=== PATIENT | male | born 1955 | race Caucasian/White ===

== ENCOUNTER 2025-06-23 13:43 | Emergency (ER) | payer MEDICARE, SELFPAY ==
[2025-06-23 13:50] VITALS: BP 142/86; PULSE 71; TEMP 36.9; O2SAT 98; BMI 39.6
--- NOTE | 2025-06-23 13:57 | XR_ITS ---
The [address] [address] Patient Name: PARAMJIT ROMAN MRN: [id number] date: 1955 Sex: M Assigned Patient Location: ED.MAIN Current Patient Location: ED.MAIN Accession/Order Number: [id number] Exam Date: 06/23/2025 14:55 Report Date: 06/23/2025 14:55 At the request of: ALE LACY MD Procedure: XR chest 1V Plain film chest Single view HISTORY: Cough for 3 days COMPARISON: None FINDINGS: SUPPORT DEVICES: None POSTSURGICAL CHANGES: None HEART: Within normal limits PULMONARY KELLY: Within normal limits MEDIASTINUM: Unremarkable LUNGS AND PLEURA: No acute lung process, pleural effusion or pneumothorax identified. BONY STRUCTURES: Intact ADDITIONAL FINDINGS None XR/XR chest 1V IMPRESSION: No acute process. Impression dictated by: Forest Mcintosh M.D. 06/23/2025 2:55 PM Dictation Location: [facility] Electronically authenticated by: [id number] Y Date: 06/23/2025 14:55
--- OUTSIDE RECORDS SUMMARY | 2025-06-23 14:11 | XMS_ITS | Clinical Summary ---
Author Organization [employer] [facility] Address [id number] [address] [place] [address] Care Team Providers Care Equipment Operat0R Name Role Phone Martin Khan MD Primary Care Provider + [phone] Allergies No known active allergies Medications sertraline (ZOLOFT) 50 mg tablet Take 50 mg by mouth daily. Active ARIPiprazole (ABILIFY) 5 mg tablet Take 10 mg by mouth daily. Active cholecalciferol , vitamin D3, (VITAMIN D3) 1,000 unit capsule Take 1,000 Units by mouth daily. Active vitamin E 400 units capsule Take 800 Units by mouth daily. Active fluticasone propionate (FLONASE) 50 mcg/actuation nasal spray Administer 1 spray into each nostril daily. Active L. rhamnosus GG/inulin (CULTURELLE PROBIOTICS ORAL) Take by mouth. Activ e EPINEPHrine (EPIPEN) 0.3 mg/0.3 mL auto-injector Inject 0.3 mL (0.3 mg total) into the appropriate muscle as needed (ANAPHYLAXIS) for up to 1 dose. PLEASE DISPENSE 1 BOX (2 PENS) 1 each 9 Active Additional Information Patient not taking.Reported on 12/23/2019 ibuprofen (MOTRIN ORAL) Take 800 mg by mouth daily as needed. Active DULoxetine (CYMBALTA) 20 mg capsule Take 20 mg by mouth daily. 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 Left-sided tinnitus 08/31/2019 Cigarette smoker 08/31/2019 Family History Medical History Relation Name Comments Cancer Father Lymphoma Father Aneurysm Mother Relation Name Status Comments Father Mother Social History Tobacco Use Types Packs/Day Years Used Date Smoking Tobacco: Some Days Smokeless Tobacco: Never Tobacco Cessation:Ready to Q uit: No; Counseling Given: Yes Alcohol Use Standard Drinks/Week Comments Yes 0 (1 standard drink = 0.6 oz pur e alcohol) Childcare Answer Date Recorded Childcare Unknown 05/11/2019 Employment Answer Date Recorded Employment Unknown 05/11/2019 Purpose - Life Answer Date Recorded Purpose and direction in life Unknown Sex and Gender Information Value Date Recorded Sex Assigned at Not on file Legal Sex Male 12:04 PM EDT Gender Identity Not on file Sexual Orientation Not on file Last Filed Vital Signs Vital Sign Reading Time Taken Comments Blood Pressure 141/79 12/23/2019 2:54 PM EST Pulse 71 12/23/2019 2:54 PM EST Temperature 36.8 C (98.2 F) 12/23/2019 2:54 PM EST Respiratory Rate 18 12/23/2019 2:54 PM EST Oxygen Saturation 97% 12/23/2019 2:54 PM EST Inhaled Oxygen Concentration - - Weight 141.1 kg (311 lb) 04/14/2022 7:06 PM EDT Height 188 cm (6' 2 ) 04/14/2022 7:06 PM EDT Body Mass Index 39.93 04/14/2022 7:06 PM EDT Plan of Treatment Health Maintenance Due Date Last Done Comments Depression Screening 1969 Tobacco Screening 1969 Adult BMI Screening 1975 Zoster (Shingles) Vaccine (1 of 2) 1976 COVID-19 Vaccine (3 - Pfizer risk series) 07/03/2021 06/05/2021, 05/15/2021 Fall Risk Screening 2022 Influenza Vaccine 07/31/2025 11/04/2023, , 11/14/2021, Additional history exists DTaP,Tdap and Td Vaccines (2 - Td or Tdap) 12/23/2028 12/23/2018 Medical Devices Not on file Insurance TNA [employer] MEDICARE Care Teams Equipment Operat0R Relationship Specialty Start Date End Date Martin Khan MD [address] [address] PCP - General Internal Medicine 02/12/23
[2025-06-23 14:24] VITALS: TEMP 37.5
--- NOTE | 2025-06-23 14:25 | ED.GENADUL1 ---
HPI HPI - General Adult General Chief complaint: Upper Respiratory Infection Stated complaint: BODY ACHES Time Seen by Provider: 06/23/25 14:23 Source: patient Mode of arrival: walk-in Limitations: no limitations History of Present Illness HPI narrative: Patient presents emergency department with 3-day history of cough, congestion, generalized malaise, fatigue, headache, body aches, dry heaves, poor food intake. Patient states that symptoms have been ongoing for the past 3 days. Patient did go to a reunion prior to symptom onset. Patient denies any associate abdominal pain or diarrhea. Patient has been taking TheraFlu [id number] without improvement in symptoms with last dose taken yesterday. Onset (ago): day(s) (3) Severity: moderate Associated symptoms: Reports cough, diaphoresis, fever/chills, headaches, loss of appetite, malaise and weakness; Denies syncope Related Data Previous Rx's ?Medication ?Instructions ?Recorded albuterol sulfate 90 mcg/actuation 1 inh inhalation Q6H PRN shortness 06/23/25 breath activated powder inhaler of breath #1 ea benzonatate 100 mg capsule 100 mg PO TID PRN cough #20 caps 06/23/25 doxycycline hyclate 100 mg capsule 100 mg PO BID 10 days #20 caps 06/23/25 prednisone 50 mg tablet 50 mg PO DAILY #5 tabs 06/23/25 Allergies Allergy/AdvReac Type Severity Reaction Status Date / Time No Known Drug Allergies Allergy Verified 06/23/25 13:52 Review of Systems ROS Status of ROS 10 or more systems reviewed and unremarkable except as noted in history and below Constitutional Reports: fever and chills Cardiovascular Reports: lightheadedness and shortness of breath with exertion Respiratory Reports: cough and chest congestion Gastrointestinal Denies: abdominal pain, vomiting or diarrhea Integumentary/Breast Denies: rash Neurological Reports: headache PFSH PFSH Social History Little interest or pleasure in doing things: not at all Feeling down, depressed, or hopeless: not at all Exam Constitutional Vital Signs, click to edit/add: Last Vital Signs Temp 99.5 F 06/23/25 14:24 Pulse 71 06/23/25 13:50 Resp 22 H 06/23/25 13:50 BP 142/86 H 06/23/25 13:50 Pulse Ox 98 06/23/25 13:50 O2 Del Method Room Air 06/23/25 13:50 Common normals: no apparent distress General appearance: cooperative Orientation/consciousness: Yes awake, Yes oriented to person, Yes oriented to place and Yes oriented to time HENMT Common normals: normocephalic Respiratory Common normals: normal respiratory effort and no retractions Auscultation: rhonchi lower bilaterally Cardio Common normals: regular rate and regular rhythm GI Common normals: Normal to inspection, nondistended, normoactive bowel sounds present, soft to palpation and non-tender Extremity Common normals: normal to inspection and full ROM General: normal exam except as noted Course Course Hospital Course: Patient had improved symptoms after IV steroids and fluids Vital Signs Vital signs: Vital Signs Temperature 98.5 F 06/23/25 13:50 Pulse Rate 71 06/23/25 13:50 Respiratory Rate 22 H 06/23/25 13:50 Blood Pressure 142/86 H 06/23/25 13:50 Pulse Oximetry 98 06/23/25 13:50 Oxygen Delivery Method Room Air 06/23/25 13:50 Temperature 99.5 F 06/23/25 14:24 Pulse Rate 71 06/23/25 13:50 Respiratory Rate 22 H 06/23/25 13:50 Blood Pressure 142/86 H 06/23/25 13:50 Pulse Oximetry 98 06/23/25 13:50 Oxygen Delivery Method Room Air 06/23/25 13:50 Medical Decision Making [facility] Narrative Medical decision making narrative: Patient presented the emergency department with 3-day history of generalized malaise and fatigue, cough, congestion, subjective fever and chills and poor p.o. intake. Clinically the patient appeared mildly dehydrated but had no chest pain, palpitations or shortness of breath at rest to suggest cardiac etiology of symptoms. Chest x-ray showed no obvious infiltrates. Viral testing including COVID and influenza are negative. White count is normal and electrolytes otherwise unremarkable. Discussed likely bronchitis with the patient. Given patient's improvement in symptoms he will be discharged home with supportive therapy, covered with antibiotics for bacterial etiology of URI and PCP follow-up Differential Diagnosis Differential Diagnosis: Pneumonia, bronchitis, dehydration, COVID, influenza Medical Records Medical records reviewed: Yes I reviewed the patient's medical records Lab Data Lab results reviewed: Yes I reviewed the patient's lab results Labs: Lab Results 06/23/25 06/23/25 Range/Units 13:55 14:35 WBC 4.1 (4.0-11.0) 10^3/uL RBC 4.54 L (4.70-6.10) 10^6/uL Hgb 13.7 L (14.0-18.0) g/dL Hct 40.5 L (42.0-54.0) % MCV 89.2 (80.0-94.0) fL MCH 30.2 (25.9-34.0) pg MCHC 33.8 (29.9-35.2) g/dL RDW 13.6 (11.0-15.0) % Plt Count 150 (150-450) 10^3/uL MPV 11.7 (9.5-13.5) fL Seg Neuts % (Manual) 62.0 (43.0-75.0) Lymphocytes % (Manual) 22.0 (20.5-60.0) % Monocytes % (Manual) 16.0 H (1.7-12.0) % Eosinophils % (Manual) 0.0 L (0.9-7.0) % Basophils % (Manual) 0.0 L (0.2-2.0) % Neutrophils # (Manual) 2.54 (1.4-6.5) 10^3/uL Lymphocytes # (Manual) 0.90 L (1.20-3.80) 10^3/uL Monocytes # (Manual) 0.65 (0.30-0.80) 10^3/uL Eosinophils # (Manual) 0.00 (0.00-0.70) 10^3/uL Basophils # (Manual) 0.00 (0.00-0.10) 10^3/uL Sodium 138 (136-145) mmol/L Potassium 4.1 (3.5-5.1) mmol/L Chloride 103 (98-107) mmol/L Carbon Dioxide 26.0 (21.0-32.0) mmol/L Anion Gap 13.1 BUN 16.0 (7.0-18.0) mg/dL Creatinine 1.28 (0.70-1.30) mg/dL Est GFR ( Amer) >60 (>=60 mL/min/1.73m^2) Est GFR (Non-Af Amer) 56 L (>=60 mL/min/1.73m^2) BUN/Creatinine Ratio 12.5 Glucose 105 (74-106) mg/dL Lactate 1.3 (0.4-2.0) mmol/L Calcium 8.7 (8.5-10.1) mg/dL Total Bilirubin 0.6 (0.2-1.0) mg/dL AST 21 (15-37) U/L ALT 26 (16-63) U/L Alkaline Phosphatase 74 (46-116) U/L Total Protein 7.6 (6.4-8.2) g/dL Albumin 3.7 (3.4-5.0) g/dL Globulin 3.9 g/dL Albumin/Globulin Ratio 0.9 Influenza Type A Ag Negative Influenza Type B Ag Negative SARS-CoV-2 Ag (CV2AG) Negative (NEGATIVE) Streptococcus Screen Negative Imaging Data Abdominal x-ray: Attestation: I have reviewed the pertinent imaging results. Radiologist's impression: ITS Impressions Chest X-Ray 06/23/25 13:57 IMPRESSION: No acute process. Impression dictated by: Forest Mcintosh M.D. 06/23/2025 2:55 PM Dictation Location: [place] [address] Electronically authenticated by: [id number] Y Date: 06/23/2025 14:55 Discharge Plan Discharge Chief Complaint: Upper Respiratory Infection Clinical Impression: Bronchitis Patient Disposition: Home, Self-Care Time of Disposition Decision: 15:37 Condition: Good Prescriptions / Home Meds: New doxycycline hyclate 100 mg capsule 100 mg PO BID 10 Days Qty: 20 0RF benzonatate 100 mg capsule 100 mg PO TID PRN (Reason: cough) Qty: 20 0RF prednisone 50 mg tablet 50 mg PO DAILY Qty: 5 0RF albuterol sulfate 90 mcg/actuation aerosol powdr breath activated 1 inh inhalation Q6H PRN (Reason: shortness of breath) Qty: 1 0RF Print Language: Thai Instructions: Acute Bronchitis (ED) Referrals: Physician,Non-Staff, MD [Primary Care Provider] - 1 week
[2025-06-23 14:38] LABS: SARS-CoV-2 Ag NEGATIVE (NEGATIVE)
[2025-06-23] MEDS: METHYLPREDNISOLONE SOD SUCC PF 125 MG/2 ML VIAL IVP (14:43)
[2025-06-23] MEDS: 0.9 % SODIUM CHLORIDE 1,000 ML 1000 ML IV (14:43)
[2025-06-23] MEDS: ACETAMINOPHEN 500 MG TABLET 1000 MG PO (14:43)
[2025-06-23 14:48] LABS: Hematocrit 40.5 % (42.0-54.0); Hemoglobin 13.7 g/dL (14.0-18.0); Mean Corpuscular HGB Conc 33.8 g/dL (29.9-35.2); Mean Corpuscular Hemoglobin 30.2 pg (25.9-34.0); Mean Corpuscular Volume 89.2 fL (80.0-94.0); Platelet Count 150 10^3/uL (150-450); Red Blood Count 4.54 10^6/uL (4.70-6.10); White Blood Count 4.1 10^3/uL (4.0-11.0)
[2025-06-23 15:05] LABS: Lactate/Lactic Acid 1.3 mmol/L (0.4-2.0)
[2025-06-23 15:11] LABS: Alanine Aminotransferase 26 U/L (16-63); Albumin Globulin Ratio 0.9; Albumin Level 3.7 g/dL (3.4-5.0); Alkaline Phosphatase 74 U/L (46-116); Anion Gap 13.1; Aspartate Amino Transferase 21 U/L (15-37); Blood Urea Nitrogen 16.0 mg/dL (7.0-18.0); Calcium 8.7 mg/dL (8.5-10.1); Carbon Dioxide 26.0 mmol/L (21.0-32.0); Chloride 103 mmol/L (98-107); Estimated GFR (African America >60 (>=60 mL/min/1.73m^2); Estimated GFR (Non-African Ame 56 (>=60 mL/min/1.73m^2); Globulin 3.9 g/dL; Glucose 105 mg/dL (74-106); Potassium 4.1 mmol/L (3.5-5.1); Sodium 138 mmol/L (136-145); Total Protein 7.6 g/dL (6.4-8.2)
[2025-06-23 15:17] LABS: Basophils Abs Manual 0.00 10^3/uL (0.00-0.10); Basophils Percent Manual 0.0 % (0.2-2.0); Eosinophils Absolute Manual 0.00 10^3/uL (0.00-0.70); Eosinophils Percent Manual 0.0 % (0.9-7.0); Lymphocytes Absolute Manual 0.90 10^3/uL (1.20-3.80); Lymphocytes Percent Manual 22.0 % (20.5-60.0); Monocytes Absolute Manual 0.65 10^3/uL (0.30-0.80); Monocytes Percent Manual 16.0 % (1.7-12.0); Segmented Neut Absolute Manual 2.54 10^3/uL (1.4-6.5); Segmented Neutrophils % Manual 62.0 (43.0-75.0)
[2025-06-23] MEDS: GUAIFENESIN 200 MG/DEXTROMETHORPHAN 20 MG 10 ML UNIT DOSE CUP PO (16:11)
== END 2025-06-23 16:10 | disposition home or self-care (01) ==
PROVIDERS: Physician Assistant; Emergency Provider Emergency Medicine
DX: J40 Bronchitis, not specified as acute or chronic (principal)
CPT/HCPCS: 36415; 71045; 80053; 83605; 85007; 85027; 87070; 87804; 87811; 87880; 96374; 99285; J2919

== ENCOUNTER 2025-06-25 21:50 | Emergency (ER) | payer MEDICARE, SELFPAY ==
[2025-06-25 21:54] VITALS: BP 171/93; PULSE 88; O2SAT 96; BMI 39.6
[2025-06-25 22:06] VITALS: TEMP 37.4
--- NOTE | 2025-06-25 22:16 | XR_ITS ---
The [place] [id number] Patient Name: PARAMJIT ROMAN MRN: [id number] date: 1955 Sex: M Assigned Patient Location: ER Current Patient Location: Accession/Order Number: [id number] Exam Date: 06/26/2025 06:26 Report Date: 06/26/2025 06:29 At the request of: LUCI DIAZ MD Procedure: XR chest 2V XR chest 2V 06/25/2025 10:38 PM SIGNS AND SYMPTOMS: Nonproductive cough PROTOCOL: Frontal and lateral radiograph of the chest COMPARISON: 06/23/2025 FINDINGS: The trachea is midline. The heart and mediastinal structures are within normal limits. There is interstitial prominence which appears to be chronic in nature. The lung parenchyma is clear, otherwise. The bony thorax is intact. Degenerative changes are noted in the shoulders and thoracic spine. XR/XR chest 2V IMPRESSION: No acute cardiopulmonary pathology. Impression dictated by: Jaun Grayson M.D. 06/26/2025 6:29 AM Dictation Location: [place] [address] Electronically authenticated by: [id number] Y Date: 06/26/2025 06:29
--- NOTE | 2025-06-25 22:18 | ED_ITS ---
HPI - URI/Sore Throat General Chief Complaint: Upper Respiratory Infection Stated Complaint: COUGH/ HEADACHE Time Seen by Provider: 06/25/25 22:06 Source: patient Limitations: no limitations History of Present Illness HPI Narrative: patient seen here 3 days ago with body aches and cough. Covid and influenza neg. Now returns due to continued cough and not able to sleep due to repetitive coughing. Has low grade fever. No vomiting or diarrhea. Chest hurts from coughing Related Data Previous Rx's ?Medication ?Instructions ?Recorded albuterol sulfate 90 mcg/actuation 1 inh inhalation Q6 H PRN shortness 06/23/25 breath activated powder inhaler of breath #1 ea benzonatate 100 mg capsule 100 mg PO TID PRN cough #20 caps 06/23/25 doxycycline hyclate 100 mg capsule 100 mg PO BID 10 da ys #20 caps 06/23/25 prednisone 50 mg tablet 50 mg PO DAILY #5 tabs 06/23 Allergies Allergy/AdvReac Type Severity Reaction Status Date / Time No Known Drug Allergies Allergy Verified 06/25/25 22:04 Review of Systems ROS Status of ROS 10 or more systems reviewed and unremark able except as noted in history and below PFSH PFSH Social History Little interest or pleasure in doing things: not at all Feeling down, depressed, or hopeless: not at all Exam Constitutional Vital Signs, click to edit/add: Last Vital Signs Temp 99.3 F 06/25/25 22:06 Pulse 79 06/26/25 04:59 Resp 16 06/26/25 05:37 BP 137/81 06/26/25 05:37 Pulse Ox 96 06/26/25 04:59 O2 Del Method Room Air 06/26/25 04:59 Common normals: no apparent distress, average body habitus, oriented x3, no limitations, healthy appearing, alert and well nourished [facility] Common normals: normocephalic and head/scalp atraumatic Eye Common normals: EOMs intact bilaterally and conjunctivae normal Respiratory Common normals: normal respiratory effort, no retractions, no use of accessory muscles and clear to auscultation bilaterally Other: immediate cough with deep breath Cardio Common normals: regular rate, regular rhythm, S1 normal heart sound and S2 normal heart sound GI Common normals: Normal to inspection, nondistended, normoactive bowel sounds present and soft to palpation Extremity Common normals: normal to inspection and full ROM Neuro Common normals: oriented x3, CN's II-XII intact bilaterally, moves all extremities and no focal motor deficits Psych Appearance: grossly normal Course Vital Signs Vital signs: Vital Signs Pulse Rate 88 06/25/25 21:54 Respiratory Rate 22 H 06/25/25 21:54 Blood Pressure 171/93 H 06/25/25 21:54 Pulse Oximetry 96 06/25/25 21:54 Oxygen Delivery Method Room Air 06/25/25 21:54 Temperature 99.3 F 06/25/25 22:06 Pulse Rate 79 06/26/25 04:59 Respiratory Rate 16 06/26/25 05:37 Blood Pressure 137/81 06/26/25 05:37 Pulse Oximetry 96 06/26/25 04:59 Oxygen Delivery Method Room Air 06/26/25 04:59 MDM - URI/Sore Throat MDM Narrative Medical decision making narrative: presents with bronchospastic cough. Seen yesterday for the same. Not short of breath but has repeated coughing jags. cxray per my review is without acute infiltrate. Patient is afebrile. WBC normal. lactic acid likely related to his repetitive coughing jags. No clinical evidence to support sepsis. He is afebrile and not tachycardia. All of his vital signs have improved and he is now feeling better and coughing much less. Discharged home and advised to follwo up with his doctor tomorrow for recheck Lab Data Labs: Lab Results 06/25/25 06/26/25 06/26/25 Range/Units 22:59 03:15 05:30 WBC 7.5 (4.0-11.0) 10^3/uL RBC 4.55 L (4.70-6.10) 10^6/uL Hgb 13.7 L (14.0-18.0) g/dL Hct 40.3 L (42.0-54.0) % MCV 88.6 (80.0-94.0) fL MCH 30.1 (25.9-34.0) pg MCHC 34.0 (29.9-35.2) g/dL RDW 13.5 (11.0-15.0) % Plt Count 153 (150-450) 10^3/uL MPV 11.8 (9.5-13.5) fL Neut % (Auto) 78.6 H (43.0-75.0) % Lymph % (Auto) 7.9 L (20.5-60.0) % [place] % (Auto) 12.4 H (1.7-12.0) % Eos % (Auto) 0.0 L (0.9-7.0) % Baso % (Auto) 0.4 (0.2-2.0) % Neut # (Auto) 5.9 (1.4-6.5) 10^3/uL Lymph # (Auto) 0.6 L (1.2-3.8) 10^3/uL [place] # (Auto) 0.9 H (0.3-0.8) 10^3/uL Eos # (Auto) 0.0 (0.0-0.7) 10^3/uL Baso # (Auto) 0.0 (0.0-0.1) 10^3/uL Abs Immat Gran (auto) 0.05 H (0.00-0.03) 10^3/uL Imm/Tot Granulo (auto) 0.7 H (0.0-0.5) % Sodium 138 (136-145) mmol/L Potassium 4.2 (3.5-5.1) mmol/L Chloride 101 (98-107) mmol/L Carbon Dioxide 27.0 (21.0-32.0) mmol/L Anion Gap 14.2 BUN 22.0 H (7.0-18.0) mg/dL Creatinine 1.30 (0.70-1.30) mg/dL Est GFR ( Amer) >60 (>=60 mL/min/1.73m^2) Est GFR (Non-Af Amer) 55 L (>=60 mL/min/1.73m^2) BUN/Creatinine Ratio 16.9 Glucose 111 H (74-106) mg/dL Lactate 2.2 H* 3.0 H* 3.2 H* (0.4-2.0) mmol/L Calcium 8.6 (8.5-10.1) mg/dL Discharge Plan Discharge Chief Complaint: Upper Respiratory Infection Clinical Impression: Acute bronchospasm Patient Disposition: Home, Self-Care Prescriptions / Home Meds: No Action doxycycline hyclate 100 mg capsule 100 mg PO BID 10 Days Qty: 20 0RF benzonatate 100 mg capsule 100 mg PO TID PRN (Reason: cough) Qty: 20 0RF prednisone 50 mg tablet 50 mg PO DAILY Qty: 5 0RF albuterol sulfate 90 mcg/actuation aerosol powdr breath activated 1 inh inhalation Q6H PRN (Reason: shortness of breath) Qty: 1 0RF Print Language: Rw[place]an Instructions: Bronchospasm (ED) Additional Instructions: follow up with your doctor tomorrow . Return if any worsening Referrals: Physician,Non-Staff, MD [Primary Care Provider] - 1 week
[2025-06-25] MEDS: METHYLPREDNISOLONE SOD SUCC PF 125 MG/2 ML VIAL IVP (23:01)
[2025-06-25 23:07] LABS: Hematocrit 40.3 % (42.0-54.0); Hemoglobin 13.7 g/dL (14.0-18.0); Immature Granulocytes Abs Auto 0.05 10^3/uL (0.00-0.03); Immature Granulocytes Pct Auto 0.7 % (0.0-0.5); Lymphocytes Absolute Auto 0.6 10^3/uL (1.2-3.8); Mean Corpuscular HGB Conc 34.0 g/dL (29.9-35.2); Mean Corpuscular Hemoglobin 30.1 pg (25.9-34.0); Mean Corpuscular Volume 88.6 fL (80.0-94.0); Platelet Count 153 10^3/uL (150-450); Red Blood Count 4.55 10^6/uL (4.70-6.10); White Blood Count 7.5 10^3/uL (4.0-11.0)
[2025-06-25 23:15] VITALS: PULSE 86; O2SAT 94
[2025-06-25] MEDS: IPRATROPIUM/ALBUTEROL SULFATE 3 ML AMPUL.NEB IH (23:15)
[2025-06-25 23:40] LABS: Anion Gap 14.2; Blood Urea Nitrogen 22.0 mg/dL (7.0-18.0); Calcium 8.6 mg/dL (8.5-10.1); Carbon Dioxide 27.0 mmol/L (21.0-32.0); Chloride 101 mmol/L (98-107); Estimated GFR (African America >60 (>=60 mL/min/1.73m^2); Estimated GFR (Non-African Ame 55 (>=60 mL/min/1.73m^2); Glucose 111 mg/dL (74-106); Potassium 4.2 mmol/L (3.5-5.1); Sodium 138 mmol/L (136-145)
[2025-06-25 23:44] LABS: Lactate/Lactic Acid 2.2 mmol/L (0.4-2.0)
[2025-06-26] VITALS (8 sets, daily range): BP systolic 107–171; BP diastolic 68–93; PULSE 78–89; O2SAT 93–97
[2025-06-26] MEDS: CLONIDINE HCL 0.1 MG TABLET PO (00:07)
[2025-06-26] MEDS: 0.9 % SODIUM CHLORIDE 1,000 ML 999 ML IV ×2 (00:07→04:04)
[2025-06-26] MEDS: IPRATROPIUM/ALBUTEROL SULFATE 3 ML AMPUL.NEB IH ×3 (00:15→04:07)
[2025-06-26 03:42] LABS: Lactate/Lactic Acid 3.0 mmol/L (0.4-2.0)
--- NOTE | 2025-06-26 03:43 | PC.NURSE ---
Lactate acid at 3.0. Dr Rosario informed.
--- NOTE | 2025-06-26 05:47 | PC.NURSE ---
Pt states he feels so much better and is ready to go home. Explained that we are awaiting lab results.
[2025-06-26 05:56] LABS: Lactate/Lactic Acid 3.2 mmol/L (0.4-2.0)
== END 2025-06-26 06:23 | disposition home or self-care (01) ==
PROVIDERS: Emergency Provider Internal Medicine
DX: J98.01 Acute bronchospasm (principal); R50.9 Fever, unspecified
CPT/HCPCS: 36415; 71046; 80048; 83605; 85025; 94640; 96374; 99285; J2919